=== PATIENT | male | born 1970 | race Caucasian/White ===

== ENCOUNTER → 2024-01-15 06:33 | Outpatient (REF) | payer OTHER, SELFPAY | LOC: MRI 3T 06:33 | PROVIDERS: ATTENDING PHYSICIAN Specialist; FAMILY PHYSICIAN Student in an Organized Health Care Education/Training Program | DX: C61 Malignant neoplasm of prostate (principal) | CPT/HCPCS: 72197; A9575 ==

== ENCOUNTER 2024-04-01 06:17 | Day surgery (SDC) | payer OTHER, SELFPAY ==
[2024-03-25 11:00] LABS: Hematocrit 42.1 % (39.0-52.0); Mean Corp Hgb Conc. 33.3 g/dL (33.0-37.0); Mean Corpuscular Volume 93.3 fL (80.0-94.0); Mean Platelet Volume 10.1 fL (7.4-10.4); Platelet Count 293 10^3/uL (130-400); Red Blood Cell Count 4.51 10^6/uL (4.70-6.10); Red Cell Dist. Width 13.2 % (11.5-14.5); White Blood Cell Count 7.1 10^3/uL (4.8-10.8)
[2024-03-25 11:56] LABS: Blood Urea Nitrogen 23 mg/dl (9-20); Calcium 9.7 mg/dl (8.4-10.2); Carbon Dioxide 29 mmol/L (22-30); Chloride 102 mmol/L (98-107); Glucose 98 mg/dl (70-99); Potassium 4.6 mmol/L (3.5-5.1); Sodium 141 mmol/L (135-145); eGFR > 60.00
[2024-03-25 14:00] VITALS: BMI 32.4
[2024-04-01] VITALS (19 sets, daily range): BP systolic 114–152; BP diastolic 64–130; BMI 32.4
[2024-04-01] MEDS: NORMOSOL-R/PLASMALYTE-A 1000 IV (06:50)
--- NOTE | 2024-04-01 13:04 | W.IMMPOSTOP ---
Surgical Immed Post Op Note
-
Primary Surgeon: Marilufer
Assisting Surgeon: -
Pre-op Diagnosis: Prostate cancer
Post-op Diagnosis: same
Procedure Performed: Robotic prostatectomy
Anesthesia Type: gen
Specimen / Cultures: prostate
Estimated Blood Loss: 150cc
Complications: none
Operative Findings: -
[2024-04-01] MEDS: DILAUDID 0.5 MG IV ×2 (13:40→14:45)
[2024-04-01] MEDS: TORADOL 15 MG IV ×2 (13:40→19:38)
[2024-04-01] MEDS: NSS 1000 IV ×2 (15:33→23:10)
[2024-04-01] MEDS: MORPHINE SULFATE 4 MG IV ×4 (15:55→23:28)
--- NOTE | 2024-04-01 16:16 | PTCARENOTE ---
Pt transferred from PACU. AOx3 c/o 9/10 back pain. LCTA B/L regular heart sounds. LCTA. round obese abd +BSx4 7 lap sites across abd, all secured with glue and well approximated. penny draining punch colored urine. skin is otherwise intact. +1 edema
RLE, pt reports this is baseline for him. +PP B/L. Pt assisted to stand at bedside, PRN Morphine administered. CB in reach.
[2024-04-01] MEDS: LOVENOX 40 MG SC (17:01)
[2024-04-01] MEDS: SENOKOT 17.2 MG PO (19:38)
[2024-04-01 20:12] LABS: Hematocrit 36.4 % (39.0-52.0); Hemoglobin 12.8 g/dL (13.0-18.0)
[2024-04-01] MEDS: ELAVIL 25 MG PO (20:39)
[2024-04-01 20:41] LABS: Blood Urea Nitrogen 19 mg/dl (9-20); Calcium 8.5 mg/dl (8.4-10.2); Carbon Dioxide 25 mmol/L (22-30); Chloride 103 mmol/L (98-107); Estimated Creatinine Clearance > 125 ml/min; Glucose 160 mg/dl (70-99); Potassium 4.6 mmol/L (3.5-5.1); Sodium 138 mmol/L (135-145); eGFR > 60.00
[2024-04-02 02:45] VITALS: BP 112/68
[2024-04-02] MEDS: TORADOL 15 MG IV ×2 (03:04→08:34)
[2024-04-02] MEDS: MORPHINE SULFATE 4 MG IV (06:28)
[2024-04-02 08:13] LABS: Hematocrit 35.3 % (39.0-52.0); Hemoglobin 11.7 g/dL (13.0-18.0); Mean Corp Hgb Conc. 33.1 g/dL (33.0-37.0); Mean Corpuscular Hgb 31.3 pg (27.0-31.0); Mean Corpuscular Volume 94.4 fL (80.0-94.0); Platelet Count 258 10^3/uL (130-400); Red Blood Cell Count 3.74 10^6/uL (4.70-6.10); Red Cell Dist. Width 13.5 % (11.5-14.5); White Blood Cell Count 12.7 10^3/uL (4.8-10.8)
[2024-04-02] MEDS: LIPITOR 10 MG PO (08:33)
[2024-04-02] MEDS: PROTONIX 40 MG PO (08:34)
[2024-04-02] MEDS: SENOKOT 17.2 MG PO (08:34)
[2024-04-02 08:35] VITALS: BP 132/79
[2024-04-02] MEDS: PERCOCET 5/325 1 TABLET PO (08:36)
[2024-04-02 08:50] LABS: Blood Urea Nitrogen 16 mg/dl (9-20); Calcium 8.2 mg/dl (8.4-10.2); Carbon Dioxide 22 mmol/L (22-30); Chloride 106 mmol/L (98-107); Estimated Creatinine Clearance > 125 ml/min; Glucose 109 mg/dl (70-99); Potassium 4.1 mmol/L (3.5-5.1); Sodium 137 mmol/L (135-145); eGFR > 60.00
--- NOTE | 2024-04-02 10:08 | CM ---
Addendum entered by Eileen Regan RN 04/02/24 12:15:
Per VN, patient is out of their service area. Referral sent and accepted by [facility]. Patient informed.
Plan: Discharge to home with [facility] services.
[facility]
Original Note:
Reviewed the chart notes and spoke with the patient at the bedside. Patient admitted for robotic prostatectomy. Patient resides with his spouse in a two story home with first floor master bedroom/bath. The patient reports history of VN back in
1998. The patient report no DME or SNF in the past. The patient confirmed his pharmacy of choice is the [facility] [address]. The patient's PCP is Dr. Harrison Coreas. CM consult received for VN/homecare. Discussed area VN
agencies. Patient selected VN. CM continues to be available to patient/family and is monitoring medical plan for needs at discharge.
Plan: Discharge to home when medically stable with VN services. Patient's spouse will provide transportation.
[2024-04-02 11:00] VITALS: BP 133/73
--- NOTE | 2024-04-02 11:28 | W.PN.URO.CBU ---
Today's Communication / Plan
-
Discharge
Assessment / Plan
-
53M post op RALP
- Penny to leg bag
- Replace stat lock or strap
- Ambulate
- Regular diet
- Discharge today with penny in place
Diagnosis
-
Date of Service: April 02, 2024
-
Patient Diagnosis:Prostate cancer
Post Op Day: s/p RALP
Subjective
-
pain controlled
tolerating diet
minimal ambulation so far
catheter minimal bother
Objective
-
Vital Signs
Temp Pulse Resp BP Pulse Ox
98.0 F 72 16 132/79 98
04/02/24 08:35 04/02/24 08:35 04/02/24 08:35 04/02/24 08:35 04/02/24 08:35
Intake and Output
04/01/24 04/02/24 04/03/24
06:59 06:59 06:59
Intake Total 2095 / 2095
Output Total 1350 / 1350
Balance 745 / 745
Intake:
Oral fluids 720 / 720
IV fluids (Total) 1375 / 1375
Output:
Urine, Penny 1350 / 1350
Laboratory Results
04/02/24 07:35
04/02/24 07:35
Physical Exam
-
General - well developed, well nourished, no acute distress
Chest - clear bilaterally
Abdomen - soft, non-tender
Penny clear yellow
Skin - warm & dry with no rash
Neuro - AOx3, no motor deficits
Incision - clean, dry
Dressing - clean, dry, intact
== END 2024-04-02 13:19 | disposition home or self-care (01) ==
LOC: SDS 06:17
PROVIDERS: ATTENDING PHYSICIAN Urology; FAMILY PHYSICIAN Student in an Organized Health Care Education/Training Program
DX: C61 Malignant neoplasm of prostate (principal)
CPT/HCPCS: 55866; 88305; 88309; 88332; 36415; 80048; 85014; 85018; 85027; 86850; 86900; 86901; 88331; 93005

== ENCOUNTER → 2025-01-05 06:40 | Outpatient (REF) | payer OTHER, SELFPAY | LOC: RAD 06:40 | PROVIDERS: ATTENDING PHYSICIAN Student in an Organized Health Care Education/Training Program | DX: M54.50 Low back pain, unspecified (principal); G89.29 Other chronic pain; Z87.81 Personal history of (healed) traumatic fracture | CPT/HCPCS: 72148; 73502 ==